=== PATIENT | male | born 1950 | race African-American/Black ===

== ENCOUNTER 2020-07-22 02:59 | Inpatient (IN) | payer OTHER ==
[~2020-07-22] VITALS: Ht 160 cm; Wt 57.7 kg
--- NOTE | 2020-07-22 03:24 | PHYS DOC ---
Adult General Chief Complaint Chief Complaint: SYNCOPE HPI HPI Patient is a 70-year-old male with a past medical history significant for COPD and current smoker, hypertension, hyperlipidemia and CAD who presents with a chief complaint of syncope. States he was at home just before coming to the emergency department sleeping, woke up and was sitting at the edge of the bed about to go to the restroom, got lightheaded and passed out. States that he woke up laying on the floor. Does not think he hit his head on anything gone down as he went straight from the bed to the floor. Denies headache, changes in vision, neck pain, chest pain, shortness of breath, nausea, vomiting, dysuria, h ematuria or blood in the stool. Does endorse umbilical umbilical pain has been going on over the last 3 days with decreased appetite. States he is only had 1 small bowel movement in the last 4 days which is unusual for him. States that he did smoke crack 2 days ago but has not had any since. States he had a can of beer yesterday. Denies any other alcohol or drug use. States he is never passed out like that before. Denies history of IN or CVA. Denies any recent travel, illnesses, fevers, known ill contacts. States he [facility] (CATALINA CARLISLE MD) Review of Systems Review of Systems Review of systems otherwise unremarkable except noted in HPI (CATALINA CARLISLE MD) Allergies Allergies Allergies Coded Allergies Type Severity Reaction Last Updated Verified nicotine Allergy Intermediate 07/22/20 Yes (CATALINA CARLISLE MD) Physical Exam Physical Exam Constitutional: Well developed, well nourished, no acute distress, non-toxic appearance. [] HENT: Normocephalic, atraumatic, bilateral external ears normal, oropharynx moist, no oral exudates, nose normal. [] Eyes: PERRLA, EOMI, conjunctiva normal, no discharge. [] Neck: Normal range of motion, no tenderness, supple, no stridor. [] Cardiovascular:Heart rate regular rhythm, no murmur [] Lungs & Thorax: Bilateral breath sounds clear to auscultation [] Abdomen: Patient has generalized tenderness, worse around the umbilicus, with some guarding. No obvious pulsatile masses. Skin: Warm, dry, no erythema, no rash. [] Back: No tenderness, no CVA tenderness. [] Extremities: No tenderness, no cyanosis, no clubbing, ROM intact, no edema. [] Neurologic: Alert and oriented X 3, normal motor function, normal sensory function, no focal deficits noted. [] Psychologic: Affect normal, judgement normal, mood normal. [] (CATALINA CARLISLE MD) EKG EKG Rate of 83, QRS of 88, QTc of 445, no STEMI (CATALINA CARLISLE MD) Radiology/Procedures Radiology/Procedures [] (CATALINA CARLISLE MD) Heart Score Risk Factors: Risk Factors: DM, Current or recent (<one month) smoker, HTN, HLP, family history of CAD, obesity. Risk Scores: Risk Factors: DM, Current or recent (<one month) smoker, HTN, HLP, family history of CAD, obesity. (CATALINA CARLISLE MD) Course & Med Decision Making Course & Med Decision Making Patient is a 70-year-old male with past medical history significant for CAD, COPD, current smoker and recent crack cocaine use who presents with syncope Vital signs not concerning. Physical exam noted above. EKG noted above with no STEMI. Troponin normal. D-dimer elevated. Patient alert and oriented no acute distress with no focal neurologic deficits. Placed on the monitor with IV access established. Imaging and labs pending. Patient care transferred to day team. [] (CATALINA CARLISLE MD) Course & Med Decision Making Accepted care at shift change. Pending CT angio of the chest abdomen pelvis reads. Patient has right lower lobe PE. Patient states he has no chest pain but does state that he has had increasing shortness of breath recently. Will admit to start anticoagulation further evaluation of syncopal episode. PESI score which recommends initial inpatient treatment for PE (ARCHANA RUIZ MD) Dragon Disclaimer Dragon Disclaimer This electronic medical record was generated, in whole or in part, using a voice recognition dictation system. (CATALINA CARLISLE MD) Departure Departure: Impression: Primary Impression: Syncope Additional Impression: Pulmonary embolism Disposition: 09 ADMITTED INPT THIS HOSP Admitting Physician: Destiny Kern (ARCHANA RUIZ MD) Condition: STABLE Problem Qualifiers CATALINA CARLISLE MD Jul 22, 2020 03:24 ARCHANA RUIZ MD Jul 22, 2020 07:14
[2020-07-22] MEDS ORDERED: CONTRAST GIVEN. MC PRN (03:30)
[2020-07-22] MEDS ORDERED: IOHEXOL 300 MG/ML 75 ML VIAL. IV ONE (04:00)
[2020-07-22 04:08] LABS: BASO % 1 % (0-3); EOS # 0.1 x10^3/uL (0.0-0.7); EOS % 2 % (0-3); HEMATOCRIT 47.9 % (39.0-53.0); HEMOGLOBIN 15.2 g/dL (13.0-17.5); LYMPH # 2.5 x10^3/uL (1.0-4.8); LYMPH % 35 % (24-48); MEAN CORPUSCULAR HEMOGLOBIN 25 pg (25-35); MEAN CORPUSCULAR HGB CONC 32 g/dL (31-37); MEAN CORPUSCULAR VOLUME 78 fL (79-100); MONO # 0.8 x10^3/uL (0.0-1.1); MONO % 12 % (0-9); NEUT # 3.6 x10^3uL (1.8-7.7); NEUT % 51 % (31-73); PLATELET COUNT 227 x10^3/uL (140-400); RED BLOOD COUNT 6.14 x10^6/uL (4.30-5.70); RED CELL DISTRIBUTION WIDTH 16.2 % (11.5-14.5); WHITE BLOOD COUNT 7.1 x10^3/uL (4.0-11.0)
[2020-07-22] MEDS ORDERED: ONDANSETRON PF 4 MG/2 ML VIAL. ONE (04:17)
[2020-07-22 04:20] LABS: CALCIUM 9.4 mg/dL (8.5-10.1); CREATININE 1.4 mg/dL (0.7-1.3); GFR 50.4; POTASSIUM 4.6 mmol/L (3.5-5.1)
[2020-07-22 04:26] LABS: ALBUMIN 3.6 g/dL (3.4-5.0); ALBUMIN/GLOBULIN RATIO 0.9 (1.0-1.7); TOTAL BILIRUBIN 0.2 mg/dL (0.2-1.0); TOTAL PROTEIN 7.5 g/dL (6.4-8.2)
[2020-07-22] MEDS ORDERED: ONDANSETRON PF 4 MG/2 ML VIAL. IVP ONE (04:30)
[2020-07-22] MEDS ORDERED: IV RINGERS SOLUTION,LACTATED 1,000 ML IV ONE (04:30)
--- NOTE | 2020-07-22 04:42 | EKG ---
[facility] [address] [place] [id number] Test Date: 2020-07-22 Test Time: 03:28:30 Pat Name: ALEKS NIETO Department: Room: Gender: M Communications Professional: : [id number] Requested By: CATALINA CARLISLE Order Number: [id number] Reading MD: Jose Rocha MD Measurements Intervals [place] Rate: 83 P: 46 [place]: 160 QRS: 52 QRSD: 88 T: 97 QT: 374 QTc: 445 Interpretive Statements SINUS RHYTHM CONSISTENT WITH ANTEROSEPTAL INFARCT Electronically Signed On 07-22-2020 10:27:13 MANAGER CONTRACT by Jose Rocha MD
[2020-07-22] MEDS ORDERED: IOHEXOL 350 MG/ML 100 ML VIAL. IV ONE (05:30)
--- NOTE | 2020-07-22 06:24 | RAD ---
EXAM: CTA OF THE CHEST, ABDOMEN AND PELVIS WITH CONTRAST. HISTORY: Elevated d-dimer, syncope, abdominal pain. TECHNIQUE: Computed tomographic angiography of the chest, abdomen and pelvis was performed after the intravenous administration of iodinated contrast. Three-dimensional reconstructions were also perform ed. One or more of the following individualized dose reduction techniques were utilized for this exam ination: 1. Automated exposure control. 2. Adjustment of the mA and/or kV according to patient size. 3. Use of iterative reconstruction technique. COMPARISON: None. FINDINGS: Bone windows reveal no suspicious lesions. A left total hip arthroplasty is noted. There are small pulmonary emboli within one right lower lobe segmental artery. There is no aortic dis section or aneurysm. The aorta and arch vessels are not well opacified in this phase of contrast. There are no pathologically enlarged mediastinal or axillary lymph nodes. There is no pleural or nina cardial effusion. At least mild left ventricular hypertrophy is noted. There are atherosclerotic calc ifications of the coronary arteries. Aortic valve calcifications are also noted. There is moderate centrilobular emphysema. An uncalcified nodule in the left upper lobe on image 80 m easures only 3 mm. There is mild dependent atelectasis bilaterally. An 8 mm hyperenhancing lesion is noted in hepatic segment 2 on image 16. Another measures 18 mm in se gment 6 on image 30. These are incompletely characterized but most likely reflects a benign lesion raygoza ch as a hemangioma in the absence of known malignancy. The pancreas, adrenal glands, gallbladder, spleen and kidneys are unremarkable. Note is made of a cir cumaortic left renal vein. There are no pathologically enlarged lymph nodes. The appendix is not inflamed. The transverse and right colon are decompressed but there is suggestion of mild wall thickening. There is no small bowel obstruction. There are changes of right inguinal he rnia repair. A small left inguinal hernia contains only fat. There is no abdominal aortic aneurysm. There are moderate atherosclerotic calcifications along the di stal abdominal aorta. A stent within the right external iliac and common femoral arteries is patent. The internal iliac systems are not well opacified but are patent in the more distal course is. Stenos is is suspected proximally bilaterally. The left external iliac and common femoral arteries are mildl y to moderately diseased without stenosis. Both common iliac arteries are patent. Celiac axis, superior mesenteric artery and inferior mesenteric artery are patent. Renal arteries are patent bilaterally. IMPRESSION: 1. Small pulmonary embolism within a right lower lobe segmental artery. 2. Moderate centrilobular emphysema. 3. A 3 mm left upper lobe nodule is most likely benign at this small size. Follow-up could be conside red in one year given risk factors. 4. Mild right and transverse colonic wall thickening may reflect only luminal decompression. Correlat e for mild colitis. 5. Hyperenhancing hepatic lesions most likely reflect benign hemangiomas in the absence of known татьяна gnancy. MRI could further characterize only if there is persistent concern. These findings were called to Dr. Wan by Brendan Callejas on 07/22/2020 at 6:18 AM. Electronically signed by: Devonte Callejas MD (07/22/2020 6:22 AM) [facility]
[2020-07-22] MEDS ORDERED: MORPHINE SULFATE 2 MG/ML DISP.SYRIN. IVP PRN (07:15)
[2020-07-22] MEDS ORDERED: ONDANSETRON PF 4 MG/2 ML VIAL. IVP PRN (07:15)
[2020-07-22] MEDS ORDERED: ACETAMINOPHEN 325 MG TABLET PO PRN (07:15)
[2020-07-22] MEDS ORDERED: APIXABAN 5 MG TABLET. PO SCH ×2 (07:30→21:00)
[2020-07-22 08:00] VITALS: BP 120/72
--- NOTE | 2020-07-22 08:30 | NUR ---
Pt admitted, a/ox4, calm pleasant, vitals signs stable, pt on room air. Pt unsure of med list, called [facility] left message for pt med list. Awaiting response.
[2020-07-22 11:00] VITALS: BP 115/75
[2020-07-22 15:00] VITALS: BP 105/86
[2020-07-22 15:36] VITALS: BP 119/80
[2020-07-22 15:38] VITALS: BP 119/77
[2020-07-22 15:39] VITALS: BP 120/88
[2020-07-22 15:43] LABS: CALCIUM 9.1 mg/dL (8.5-10.1); GFR 89.9; POTASSIUM 4.7 mmol/L (3.5-5.1)
[2020-07-22] MEDS ORDERED: SIMETHICONE 80 MG TAB.CHEW PO PRN (15:45)
--- NOTE | 2020-07-22 17:00 | NUR ---
Pt discharged to home for self care, [facility] called to transport pt home, reviewed new home medication-Oleg with pt.
[2020-07-22] MEDS ORDERED: APIX5TAB3 PO (17:17)
--- NOTE | 2020-07-22 17:27 | SSS ---
ADMIT DATE: 07/22/2020 HISTORY OF PRESENT ILLNESS: The patient is a 70-year-old -English male patient who came to the Emergency Room with chief complaint of syncope. He stated that he was at before coming to the Emergency Department, sleeping, woke up and was sitting at the edge of the bed, about to go to the restroom, felt lightheaded and passed out. States that he woke up lying on the floor. He does not think that he hit his head or anything when he went down as he went straight from bed to the floor. He denied any headache, change in vision, neck pain, chest pain, shortness of breath, nausea, vomiting, dysuria, hematuria or blood in the stool. Does endorse umbilical pain. It has been going on over the last 3 days with decreased appetite. States he only had 1 small bowel movement in the last 4 days, which is unusual for him. States that he did smoke crack 2 days ago, but has not had any since. States that he had a can of beer yesterday. Denied any other alcohol or drug use. States that he has never passed out like this before. Denied any history of myocardial infarction or CVA. Denied any recent travel, illnesses or fever. No known ill contacts. States he got his first COVID vaccination a few days ago at the [facility]. He was extensively investigated in the Emergency Room and has had lab work done as well as imaging studies. He has had CT scan of the chest, abdomen and pelvis, which showed that the patient has small pulmonary embolism within the right lower lobe segmental artery, moderate centrilobular emphysema; has a 3 mm left upper lobe nodule, most likely benign of the small size; mild right and transverse colon wall thickening, may reflect only luminal decompression, correlate with mild colitis; has hyperenhancing hepatic lesion, most likely reflecting benign hemangioma in the absence of known malignancy. The patient received a liter of lactated Ringer's, some Zofran and was admitted to the ICU where we checked his orthostatics that remained stable. His lab work was repeated and showed that his BUN and creatinine have normalized and the patient was started on Eliquis 10 mg twice a day for 7 days and was discharged home to follow with his primary care physician at the [facility]. PAST MEDICAL HISTORY: Significant for hypertension, chronic obstructive pulmonary disease, peripheral vascular disease, benign prostatic hypertrophy. PAST SURGICAL HISTORY: Significant for left total hip arthroplasty and revascularization with stent deployment to the right femoral artery. ALLERGIES: HE IS ALLERGIC TO NICOTINE. MEDICATIONS: We do not have his medication list and we attempted to get his medication list from his primary care physician at the [facility] and we were not able to get them. FAMILY HISTORY: He has one sister who is older and healthy. Father at the age of 50 because of lung cancer. Mother at age of 85 because of natural causes. SOCIAL HISTORY: He is , has 2 sons. He smokes 5 cigarettes per day, drinks alcohol occasionally. He smokes cocaine and he is retired. PHYSICAL EXAMINATION: GENERAL: When I examined him on arrival, he was resting slightly propped up in bed, in no apparent respiratory distress. There was no pallor, jaundice, cyanosis or thyromegaly. No jugular venous distension. No limb edema. VITAL SIGNS: His heart rate was 82, blood pressure was 120/72, temperature was 98.9, respiratory rate was 18 and oxygen saturation was 99%. HEAD, EYES, EARS, NOSE AND THROAT: Normocephalic, atraumatic. NECK: Supple. HEART: Showed normal first and second heart sounds. No gallop or murmur. CHEST: Clear to auscultation. No crepitation or rhonchi. ABDOMEN: Distended, soft, nontender. NEUROLOGIC: He was awake, alert, responding appropriately. All cranial nerves intact. EXTREMITIES: He moves extremities without difficulty. He ambulates without assistance or assistive devices. LABORATORY DATA: His lab work on arrival showed a serum sodium 141, potassium 4.6, chloride 104, bicarbonate 26, anion gap of 11, BUN 13, creatinine 1.4, estimated GFR was 50 mL per minute, his glucose 123, calcium was 9.4. Total bilirubin, AST, ALT, alkaline phosphatase were normal. Total protein 7.5, albumin was 3.6. His white cell count was 7100, hemoglobin 15, hematocrit 48, MCV 78 and platelet count of 227,000 with normal manual differential. His D-dimer was high at 1.49. His imaging studies showed the bone windows reveal no suspicious lesion, left total hip arthroplasty is noted. There are small pulmonary emboli within one right lower lobe segmental artery. There is no aortic dissection or aneurysm in the aorta and arch vessels are not well opacified in this phase of contrast and there are no pathologically enlarged mediastinal axillary lymph nodes. There is no pleural or pericardial effusion, at least mild left ventricular hypertrophy is noted. There is atherosclerotic calcification of the coronary arteries, aortic valve calcification are also noted. There is moderate centrilobular emphysema and calcified nodule in the left upper lobe on image 80, measures only 3 mm. There is mild dependent atelectasis bilaterally. An 8 mm hyperenhancing lesion is noted in hepatic segment 2 on image 60 and another measuring 18 mm in segment 6. The pancreas, adrenal glands, gallbladder, spleen, and kidneys are unremarkable. Note is made of circumaortic left renal vein. There are no pathologically enlarged lymph nodes. Appendix not inflamed. The transverse and right colon are decompressed, but there is suggestion of mild wall thickening. There is no small-bowel obstruction. There are changes of the right inguinal hernia repair. A small left inguinal hernia contains only fat. There are no abdominal aortic aneurysms. There are moderate atherosclerotic calcification along the distal abdominal aorta. A stent within the right external iliac and common femoral arteries is patent. The internal iliac systems are not well opacified, but are patent in the more distal course. Stenosis suspected proximal bilaterally. The left external iliac and common femoral arteries are mildly to moderately without stenosis. Both common iliac arteries are patent. Celiac axis, superior mesenteric artery, inferior mesenteric artery are patent. Renal arteries are patent bilaterally. IMPRESSION: 1. The patient has small pulmonary embolism within the right lower lobe segmental artery. 2. Moderate centrilobular emphysema, a 3 mm left upper lobe nodule is most likely benign at this small size, mild right and transverse colon wall thickening may reflect only luminal decompression; hyperenhancing hepatic lesion, most likely reflecting benign hemangioma in the absence of known malignancy. The patient was discharged back home to continue on Eliquis 10 mg twice a day for 7 days and then 5 mg twice a day for at least 6 months or more. He was advised to follow with his primary care physician as soon as possible. FINAL DISCHARGE DIAGNOSES: 1. Pulmonary embolism. 2. Syncope without any obvious cause. The patient's orthostatics were normal. 3. Hypertension. 4. Peripheral vascular disease. 5. Chronic obstructive pulmonary disease. 6. Benign prostatic hypertrophy. SONIA CONNORS MD DR: LOUIS/lazaro JOB#: [id number] / [id number]
[2020-07-29] MEDS ORDERED: APIXABAN 5 MG TABLET. PO SCH (09:00)
== END 2020-07-22 17:00 | disposition home or self-care (01) | DRG 176 ==
LOC: ER 02:59 → EDBD 07:05 → ICU 07:05 → ER 07:41
PROVIDERS: ADMIT Internal Medicine; ATTEND Internal Medicine
DX: I26.99 Other pulmonary embolism without acute cor pulmonale (principal); E78.5 Hyperlipidemia, unspecified; F17.210 Nicotine dependence, cigarettes, uncomplicated; I10 Essential (primary) hypertension; I25.10 Atherosclerotic heart disease of native coronary artery without angina pectoris; I73.9 Peripheral vascular disease, unspecified; J43.2 Centrilobular emphysema; D18.09 Hemangioma of other sites; N40.0 Benign prostatic hyperplasia without lower urinary tract symptoms; Z80.1 Family history of malignant neoplasm of trachea, bronchus and lung; Z96.642 Presence of left artificial hip joint; Z88.8 Allergy status to other drugs, medicaments and biological substances; R55 Syncope and collapse
CPT/HCPCS: 36415; 71275; 74177; 80048; 80053; 83690; 84484; 85025; 85379; 93005; 96361; 96374; J2405; J7120; Q9967; 99285-25